=== PATIENT | male | born 1955 | race American Indian/Alaskan Native ===

== ENCOUNTER 2016-05-21 14:20 | Inpatient (IN) | payer MEDICARE, BC ==
[~2016-05-21] VITALS: Ht 190.5 cm; Wt 145.2 kg
[~2016-05-21 14:20] MED LIST: ADVAIR IH; ALBUTEROL0.09 MG/A1 IH; ALLEGRA 60MG TA60 MG PO; CEPHALEXIN500 M1 PO; FLECAINIDE; FLOVENT 110MCG7.9 GM IH; LISINOPRIL10 MG PO; LYRICA50 MG PO; NEXIUM40 MG PO; OXYCODONE HCL10 MG PO; OXYCODONE HCL20 MG PO; OXYCODONE HCL5 MG PO; SINGULAIR; SYNTHROID0.075 MG/T PO; TOPROL XL50 MG PO; VYTORIN PO; invanz
[2016-05-21 19:43] VITALS: BP 120/58; PULSE 64; TEMP 97.7
[2016-05-22 04:00] VITALS: BP 122/60; PULSE 62; TEMP 97.5
[2016-05-22] MEDS ORDERED: PACERONE400 MG PO (04:17)
[2016-05-22] MEDS ORDERED: COUMADIN 77.5 MG/TAB PO ×2 (04:18→10:29)
[2016-05-22] MEDS ORDERED: TYLENOL 325MG325 MG PO (04:19)
[2016-05-22] MEDS ORDERED: ASPIRIN 81M81 MG/TA2 PO ×2 (04:20→10:26)
[2016-05-22] MEDS ORDERED: BUMEX 1MG TA1 MG/TA1 PO (04:21)
[2016-05-22] MEDS ORDERED: SYNTHROID0.175 MG PO ×2 (04:22→10:25)
[2016-05-22] MEDS ORDERED: PRIL40 PO ×2 (04:23→10:36)
[2016-05-22] MEDS ORDERED: K-DUR20 MEQ PO (04:25)
[2016-05-22] MEDS ORDERED: SENOKOT S 50 MG1 TAB PO (04:26)
[2016-05-22] MEDS ORDERED: LIPITOR 40MG TA40 MG PO ×2 (04:28→10:33)
[2016-05-22] MEDS ORDERED: FLOMAX 0.40.4 MG/CAP PO ×2 (04:29→10:26)
[2016-05-22] MEDS ORDERED: REVATIO20 MG PO (04:30)
[2016-05-22] MEDS ORDERED: HUMALOG PEN100 U/ML SQ ×2 (07:25→07:26)
[2016-05-22] MEDS ORDERED: MICATIN2% TP (07:27)
[2016-05-22 07:56] LABS: PROTHROMBIN TIME 40.4 SECONDS (9.7-12.8)
[2016-05-22 08:11] LABS: INR 3.5 (0.8-3.0)
[2016-05-22] MEDS ORDERED: CENTRUM SILVER1 TAB (10:19)
[2016-05-22] MEDS ORDERED: ZESTRIL2.5 MG PO (10:22)
[2016-05-22] MEDS ORDERED: K-DUR 10 MEQ T10 MEQ PO (10:24)
[2016-05-22] MEDS ORDERED: COREG 3.123.125 MG/T PO (10:27)
[2016-05-22] MEDS ORDERED: CARDIZEM 60MG T60 MG PO (10:28)
[2016-05-22] MEDS ORDERED: SINGULAIR 110 MG/TAB PO (10:29)
[2016-05-22] MEDS ORDERED: OXY IR5 MG PO (10:31)
[2016-05-22] MEDS ORDERED: OXYCONTIN 20MG20 MG PO (10:32)
[2016-05-22] MEDS ORDERED: LASIX 20MG TABL20 MG PO (10:34)
[2016-05-22] MEDS ORDERED: OXYCONTIN 10MG10 MG PO (10:35)
[2016-05-22] MEDS ORDERED: ANTIVERT 25MG25 MG PO (10:38)
[2016-05-22 17:23] VITALS: BP 115/48; PULSE 67; TEMP 97.8
[2016-05-23 03:58] VITALS: BP 104/53; PULSE 58; TEMP 97.2
[2016-05-23 08:01] LABS: BASO # 0.1 (0.0-0.2); BASO % 0.8 % (0.0-2.0); EOS # 0.6 (0.0-0.7); EOS % 6.6 % (0-4.0); GRAN # 6.2 (1.4-6.5); GRAN % 71.1 % (42.2-75.2); LYMPH % 11.6 % (20.0-51.0); MEAN CELL VOLUME 79 fl (80.0-100.0); MEAN CORPUSCULAR HGB CONC 30 g/dl (33.0-37.0); MEAN PLATELET VOLUME 10.3 fl (7.4-10.4); MONO # 0.8 (0.1-0.6); MONO % 9.6 % (1.7-9.3); PLATELET COUNT 447 K/mm3 (130-400); REDCELL DISTRIBUTION WIDTH-CV 22.5 % (11.5-14.5); WHITE BLOOD COUNT 8.7 K/mm3 (4.8-10.8)
[2016-05-23 08:10] LABS: HEMATOCRIT 34.1 % (42.0-52.0); HEMOGLOBIN 10.1 g/dl (13.5-18.0); MEAN CORPUSCULAR HEMOGLOBIN 23 pg (27.0-31.0)
[2016-05-23 08:14] LABS: PROTHROMBIN TIME 36.4 SECONDS (9.7-12.8)
[2016-05-23 08:17] LABS: CREATININE, serum 1.44 mg/dL (0.66-1.25); MAGNESIUM 2.3 mg/dL (1.6-2.3); POTASSIUM 3.1 mmol/L (3.4-5.0)
[2016-05-23 08:21] LABS: INR 3.2 (0.8-3.0)
[2016-05-23 18:20] VITALS: BP 112/57; PULSE 57; TEMP 98.6
[2016-05-24 05:10] VITALS: BP 107/57; PULSE 57; TEMP 98.1
[2016-05-24 16:16] VITALS: BP 105/55; PULSE 55; TEMP 98.9
[2016-05-25 06:36] VITALS: BP 110/60; PULSE 56; TEMP 97.7
[2016-05-25 18:54] VITALS: BP 120/57; PULSE 62; TEMP 98
[2016-05-26 04:48] VITALS: BP 131/59; PULSE 61; TEMP 97.9
[2016-05-26 07:16] LABS: PROTHROMBIN TIME 42.6 SECONDS (9.7-12.8)
[2016-05-26 07:21] LABS: CALCIUM 8.9 mg/dL (8.4-10.2); CREATININE, serum 1.22 mg/dL (0.66-1.25)
[2016-05-26 07:27] LABS: INR 3.7 (0.8-3.0)
[2016-05-26 07:32] LABS: POTASSIUM 2.9 mmol/L (3.4-5.0)
[2016-05-26 16:49] VITALS: BP 106/54; PULSE 73; TEMP 97.6
[2016-05-27 04:33] VITALS: BP 113/55; PULSE 68; TEMP 98
[2016-05-27 13:13] LABS: INR 4.3 (0.8-3.0); PROTHROMBIN TIME 49.7 SECONDS (9.7-12.8)
[2016-05-27 16:37] VITALS: BP 109/62; PULSE 57; TEMP 99.3
[2016-05-28 04:32] VITALS: BP 121/52; PULSE 70; TEMP 97.4
[2016-05-28 08:27] LABS: PROTHROMBIN TIME 36.2 SECONDS (9.7-12.8)
[2016-05-28 08:31] LABS: CALCIUM 9.2 mg/dL (8.4-10.2); CREATININE, serum 1.07 mg/dL (0.66-1.25); MAGNESIUM 1.9 mg/dL (1.6-2.3); POTASSIUM 4.4 mmol/L (3.4-5.0)
[2016-05-28 08:33] LABS: INR 3.2 (0.8-3.0)
[2016-05-28 17:32] VITALS: BP 125/43; PULSE 60; TEMP 98.2
[2016-05-29 02:09] VITALS: BP 104/43; PULSE 63; TEMP 98
[2016-05-29 07:29] LABS: INR 2.4 (0.8-3.0); PROTHROMBIN TIME 27.9 SECONDS (9.7-12.8)
[2016-05-29 19:00] VITALS: BP 109/53; PULSE 54; TEMP 98.8
[2016-05-30 06:22] VITALS: BP 109/63; PULSE 53; TEMP 98.2
[2016-05-30 07:54] LABS: INR 2.7 (0.8-3.0); PROTHROMBIN TIME 30.4 SECONDS (9.7-12.8)
[2016-05-30 17:54] VITALS: BP 107/55; PULSE 51; TEMP 98.7
[2016-05-30 20:45] LABS: INFLUENZA B NEGATIVE
[2016-05-31 03:22] VITALS: BP 115/57; PULSE 58; TEMP 98.6
[2016-05-31 08:01] LABS: PROTHROMBIN TIME 35.2 SECONDS (9.7-12.8)
[2016-05-31 08:09] LABS: INR 3.1 (0.8-3.0)
[2016-05-31 16:15] VITALS: BP 101/66; PULSE 77; TEMP 98.8
[2016-06-01 06:22] VITALS: BP 108/70; PULSE 109; TEMP 98.3
[2016-06-01 08:53] LABS: INR 2.7 (0.8-3.0); PROTHROMBIN TIME 30.9 SECONDS (9.7-12.8)
[2016-06-01 17:39] VITALS: BP 108/56; PULSE 90; TEMP 97.8
[2016-06-02] VITALS (10 sets, daily range): BP systolic 101–134; BP diastolic 57–83; PULSE 109–125; TEMP 97.1–98.5
[2016-06-02 07:27] LABS: INR 2.9 (0.8-3.0); PROTHROMBIN TIME 33.2 SECONDS (9.7-12.8)
[2016-06-02 07:44] LABS: CALCIUM 8.8 mg/dL (8.4-10.2); CREATININE, serum 1.19 mg/dL (0.66-1.25); MAGNESIUM 1.7 mg/dL (1.6-2.3); POTASSIUM 3.6 mmol/L (3.4-5.0)
[2016-06-02 14:53] LABS: B-TYPE NATRIURETIC PEPTIDE 1380 pg/mL (0-125)
[2016-06-02 14:59] LABS: TROPONIN-I < 0.012 ng/mL (0.000-0.034)
[2016-06-02] MEDS ORDERED: OXYCONTIN 20MG20 MG PO (16:29)
[2016-06-02] MEDS ORDERED: ROXICODONE 55 MG/TAB PO (16:30)
[2016-06-02] MEDS ORDERED: OXYCONTIN 10MG10 MG PO (16:30)
[2016-06-02] MEDS ORDERED: TIKOSYN0.5 MG PO (16:35)
[2016-06-03] MEDS ORDERED: PACERONE400 MG PO (12:34)
[2016-06-03] MEDS ORDERED: COUMADIN 5MG5 MG/TAB PO (12:35)
[2016-06-03] MEDS ORDERED: COUMADIN 2MG2 MG/TAB PO (12:35)
== END 2016-06-02 21:51 | DRG 91 ==
PROVIDERS: Internal Medicine; Internal Medicine Interventional Cardiology; Nurse Practitioner Family
DX: G72.81 Critical illness myopathy (principal); J18.9 Pneumonia, unspecified organism; I48.0 Paroxysmal atrial fibrillation; I27.2 Other secondary pulmonary hypertension; R47.02 Dysphasia; Z95.2 Presence of prosthetic heart valve; E11.65 Type 2 diabetes mellitus with hyperglycemia; I11.0 Hypertensive heart disease with heart failure; I50.9 Heart failure, unspecified; Z79.4 Long term (current) use of insulin
CPT/HCPCS: 99223-AI; 99232-AI; 99233-AI; J1815; J2060; Q9967

== ENCOUNTER 2016-06-02 22:00 | Inpatient (IN) | payer MEDICARE, BC ==
[~2016-06-02] VITALS: Ht 190.5 cm; Wt 147.7 kg
[~2016-06-02 22:00] MED LIST changes: +ANTIVERT 25MG25 MG PO; +ASPIRIN 81M81 MG/TA2 PO; +BUMEX 1MG TA1 MG/TA1 PO; +CARDIZEM 60MG T60 MG PO; +CENTRUM SILVER1 TAB; +COREG 3.123.125 MG/T PO; +COUMADIN 77.5 MG/TAB PO; +FLOMAX 0.40.4 MG/CAP PO; +HUMALOG PEN100 U/ML SQ; +K-DUR 10 MEQ T10 MEQ PO; +K-DUR20 MEQ PO; +LASIX 20MG TABL20 MG PO; +LIPITOR 40MG TA40 MG PO; +MICATIN2% TP; +OXY IR5 MG PO; +OXYCONTIN 10MG10 MG PO; +OXYCONTIN 20MG20 MG PO; +PACERONE400 MG PO; +PRIL40 PO; +REVATIO20 MG PO; +ROXICODONE 55 MG/TAB PO; +SENOKOT S 50 MG1 TAB PO; +SINGULAIR 110 MG/TAB PO; +SYNTHROID0.175 MG PO; +TIKOSYN0.5 MG PO; +TYLENOL 325MG325 MG PO; +ZESTRIL2.5 MG PO
[2016-06-02 22:22] VITALS: BP 108/77; PULSE 110
[2016-06-03 04:02] VITALS: BP 108/77; PULSE 110; TEMP 99.1
[2016-06-03 08:00] VITALS: BP 107/85; PULSE 110; TEMP 98.4
[2016-06-03] MEDS ORDERED: PACERONE400 MG PO (12:34)
[2016-06-03] MEDS ORDERED: COUMADIN 2MG2 MG/TAB PO (12:35)
[2016-06-03] MEDS ORDERED: COUMADIN 5MG5 MG/TAB PO (12:35)
== END 2016-06-03 14:15 | disposition home or self-care (01) | DRG 309 ==
LOC: IMCU 22:00
DX: I48.0 Paroxysmal atrial fibrillation (principal); Z68.41 Body mass index [BMI] 40.0-44.9, adult; Z95.2 Presence of prosthetic heart valve; J38.02 Paralysis of vocal cords and larynx, bilateral; I10 Essential (primary) hypertension; E66.9 Obesity, unspecified
CPT/HCPCS: 99239